=== PATIENT | female | born 1960 | race Caucasian/White ===

== ENCOUNTER 2020-05-30 14:06 | Outpatient (CLI) | payer MEDICARE, MEDICAID, SELFPAY ==
--- NOTE | 2020-05-30 14:27 | PFTS_ITS ---
Date of Study:05/30/20 Date of Dictation: 06/02/2020 MECHANICS: Postbronchodilator forced vital capacity (FVC) is normal. Postbronchodilator forced expiratory volume in one second (FEV1) is moderately reduced 79%. FEV1/FVC is reduced. There is no significant response to bronchodilators. However use of bronchodilators is not precluded if clinically indicated FLOW VOLUME LOOP: Sloping of expiratory limb suggestive of airway obstruction . LUNG VOLUMES: Total lung capacity (TLC) is mildly increased. Residual volume (RV) is increased suggestive of mild air trapping DIFFUSING CAPACITY FOR CARBON MONOXIDE: Mildly reduced 65% . INTERPRETATION: The pulmonary function tests are consistent with moderate obstructive ventilatory defect. Gas exchange (DLCO) is mildly reduced. Please correlate clinically. MTDD
== END 2020-05-30 14:07 | disposition home or self-care (01) ==
LOC: RT 14:08
PROVIDERS: PCP Internal Medicine; Visit Provider Nurse Practitioner Family
DX: J45.909 Unspecified asthma, uncomplicated (principal)
CPT/HCPCS: 94060; 94726; 94729; J7611

== ENCOUNTER 2023-08-01 09:56 | Outpatient (CLI) | payer MEDICARE, MEDICAID, SELFPAY ==
--- NOTE | 2023-08-01 10:04 | MRR_ITS ---
PROCEDURE INFORMATION: Exam: MR Lumbar Spine Without Contrast Exam date and time: 08/01/2023 10:14 AM Age: 62 years old Clinical indication: Low back pain; Prior surgery; Surgery date: 6+ months; Surgery type: Lumbar; Additional info: Lumbar post laminectomy syndrome TECHNIQUE: Imaging protocol: Magnetic resonance imaging of the lumbar spine without contrast. COMPARISON: No relevant prior studies available. 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 No lumbosacral fracture is identified. Status post laminectomy at L4-L5 and L5-S1. Significant degenerative facet hypertrophic changes at L4-L5 and L5-S1. Spinal cord: Visualized cord, conus medullaris and cauda equina are unremarkable without compression. L1-L2: There is a 2 mm annulus disc bulge. There are hypertrophic degenerative facet changes which in conjunction with the scoliosis produces a moderate left neural foraminal stenosis. No suggestion of a central canal stenosis L2-L3: There is a 2 mm annulus disc bulge. There are hypertrophic degenerative facet changes which in conjunction with the scoliosis produces a moderate left neural foraminal stenosis. No suggestion of a central canal stenosis L3-L4: There is a 2 mm annulus disc bulge. There are significant degenerative facet hypertrophic changes bilaterally. No suggestion of a central canal stenosis but there is a moderate to severe left neural foraminal stenosis at this level. L4-L5: No significant disc bulge or herniation. There is a mild central canal stenosis and moderate to severe left neural foraminal stenosis secondary to significant degenerative facet hypertrophic changes L5-S1: No significant disc bulge or herniation. There is mild central canal stenosis and moderate bilateral neural foraminal stenoses secondary to severe degenerative facet hypertrophic changes. Soft tissues: No evidence of an abscess or fluid collection in the surgical bed. No findings to suggest an epidural abscess. Small simple appearing right renal cortical cysts MR/MR lumbar spine wo con* [id number] IMPRESSION: 1. No MR evidence of an acute lumbosacral abnormality. No evidence of a paraspinal abscess or epidural abscess in this patient status post lower lumbar laminectomy 2. Multilevel mild central canal stenoses and multilevel moderate to severe neural foraminal stenoses largely secondary to significant degenerative facet hypertrophic changes and a rotatory dextroscoliosis as above
== END 2023-08-01 09:57 | disposition home or self-care (01) ==
LOC: RAD 10:00
PROVIDERS: PCP Internal Medicine; Visit Provider General Practice
DX: M96.1 Postlaminectomy syndrome, not elsewhere classified (principal); M54.17 Radiculopathy, lumbosacral region; M48.061 Spinal stenosis, lumbar region without neurogenic claudication
CPT/HCPCS: 72148